=== PATIENT | male | born 1995 | race Caucasian/White ===

== ENCOUNTER 2018-06-29 13:58 | Emergency (ER) | payer BC ==
[~2018-06-29] VITALS: Ht 182.9 cm; Wt 77.3 kg
[2018-06-29 14:04] VITALS: BP 122/65; TEMP 97.7
[2018-06-29] MEDS ORDERED: FLEXERIL 1010 MG/TAB PO (16:03)
[2018-06-29] MEDS ORDERED: NORCO 325 MG-51 TAB PO (16:03)
[2018-06-29 16:10] VITALS: PULSE 59
== END 2018-06-29 16:10 | disposition home or self-care (01) ==
LOC: COL.ER 13:58
DX: M54.5 Low back pain (principal); S33.9XXA Sprain of unspecified parts of lumbar spine and pelvis, initial encounter; X50.1XXA Overexertion from prolonged static or awkward postures, initial encounter; Y93.67 Activity, basketball